=== PATIENT | male | born 1990 | race Caucasian/White ===

== ENCOUNTER 2023-04-25 07:52 | Outpatient (CLI) | payer OTHER ==
[2023-04-25] MEDS: ALBUTEROL 1 PUFF INH STA (09:31)
== END 2023-04-25 07:53 | disposition home or self-care (01) ==
LOC: RT 07:52
PROVIDERS: ATTEND Internal Medicine
DX: D86.0 Sarcoidosis of lung (principal)
CPT/HCPCS: 94060; 94727; 94729